=== PATIENT | female | born 1990 | race Asian ===

== ENCOUNTER 2024-04-27 08:32 | Outpatient (REF) | payer OTHER, SELFPAY ==
--- NOTE | ~2024-04-27 | US_ITS ---
EXAMINATION: US PELVIS, COMPLETE CLINICAL INFORMATION: Dyspareunia; the last menstrual period was on 04/04/2024. COMPARISON: None TECHNIQUE: Transabdominal and transvaginal imaging were performed. FINDINGS: The uterus is of normal size and echogenicity, measuring 8.8 x 3.7 x 5.0 cm. The uterus is anteverted. A regular homogeneous endometrium is identified measuring 1.1 cm. Both ovaries are of normal size and echogenicity. The right ovary measures 3.3 x 1.8 x 2.5 cm for a volume of 7.7 mL. The left ovary measures 2.6 x 1.3 x 2.0 cm for a volume of 3.5 mL. There is mild to moderate pelvic free fluid. No adnexal mass is seen. US/US pelvic and transvaginal IMPRESSION: Mild to moderate pelvic free fluid is seen. The examination is otherwise unremarkable. Electronically signed by: Henry Jo MD 04/27/2024 10:55 PM EDT
== END 2024-04-27 08:33 | disposition home or self-care (01) ==
LOC: HO.UMASIMG 08:32
PROVIDERS: Visit Provider Nurse Practitioner Women's Health
DX: N94.10 Unspecified dyspareunia (principal); N94.2 Vaginismus; N76.0 Acute vaginitis
CPT/HCPCS: 76830; 76856

== ENCOUNTER 2024-07-06 08:39 | Outpatient (REF) | payer OTHER, SELFPAY ==
--- NOTE | ~2024-07-06 | US_ITS ---
EXAMINATION: US PELVIS CLINICAL INFORMATION: Follow-up fluid seen on previous ultrasound 04/27/2024. COMPARISON: Previous ultrasound 04/27/2024. TECHNIQUE: Ultrasound of the pelvis is performed using both transabdominal and transvaginal transducers along with Doppler. Transvaginal imaging is performed due to inadequate visualization transabdominally. FINDINGS: Uterus: The uterus is anteverted , anteflexed and measures 7.2 x 4.1 x 4.2 cm. cm. The double wall endometrial thickness is 6.0 mm. The uterus is smooth in contour and has normal myometrial echogenicity. No visible fibroid. Adnexa: Both ovaries are visualized. There is normal color flow to the adnexa. There is no ovarian torsion. There is no pelvic ascites or fluid . Right ovary measures 3.4 x 2.2 x 2.4 cm. Volume 9.4 mL. A dominant follicle is visualized measuring 1.5 x 1.2 x 1.7 cm. Left ovary measures 2.1 x 1.3 x 2.9 cm. Volume 4.1 mL . The left ovary is unremarkable. There is no free fluid in the cul-de-sac US/US pelvic and transvaginal IMPRESSION: Right ovarian dominant follicle or cyst measuring 1.7 cm. There are small follicle seen in right ovary. The left ovary is unremarkable. Unremarkable uterus. There is no free fluid in the pelvis at this time. Electronically signed by: Jerrod Soto MD 07/06/2024 01:58 PM [facility]
== END 2024-07-06 08:40 | disposition home or self-care (01) ==
LOC: HO.UMASIMG 08:39
PROVIDERS: Visit Provider Nurse Practitioner Women's Health
DX: N94.10 Unspecified dyspareunia (principal)
CPT/HCPCS: 76830; 76856

== ENCOUNTER → 2024-07-06 13:00 | Outpatient (BNV) | payer OTHER, SELFPAY | PROVIDERS: Visit Provider Radiology Diagnostic Radiology | DX: R10.2 Pelvic and perineal pain (principal) | CPT/HCPCS: 76830; 76856 ==